=== PATIENT | male | born 1970 | race Caucasian/White ===

== ENCOUNTER 2020-03-23 09:25 | Emergency (ER) | payer MEDICAID, SELFPAY ==
[2020-03-23 09:39] VITALS: BP 179/117; PULSE 85; RESP 20; TEMP 36.9; O2SAT 97; BMI 25.1
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
--- NOTE | 2020-03-23 09:51 | ECG_ITS ---
Test Reason : SOB Blood Pressure : / mmHG Vent. Rate : 073 BPM Atrial Rate : 073 BPM P-R Int : 126 ms QRS Dur : 080 ms QT Int : 410 ms P-R-T Axes : 050 020 086 degrees QTc Int : 451 ms Normal sinus rhythm Nonspecific T wave abnormality Abnormal ECG No previous ECGs available Referred By: Dominique Raines Electronically Signed By:BATOOL CESPEDES MD
--- NOTE | 2020-03-23 09:52 | XR_ITS ---
EXAMINATION: XR CHEST CLINICAL INFORMATION: Productive cough and fever COMPARISON: None TECHNIQUE: Frontal view of the chest was obtained. FINDINGS: The cardiac and mediastinal contours are normal. The lungs are well inflated. The lungs are clear. There is no pleural effusion or thorax. There may be a degenerative changes of the spine. XR/XR chest 1V IMPRESSION: Well-inflated lungs. No evidence of pneumonia.
[2020-03-23 10:00] VITALS: BP 179/117; PULSE 85; RESP 20; TEMP 36.9; O2SAT 97
[2020-03-23] MEDS: methylPREDNISolone Sod Succ/PF 125 MG/2 ML VIAL 80 MG IVPUSH (10:17)
[2020-03-23 10:23] LABS: MANUAL DIFF FLAG NO
[2020-03-23 10:41] LABS: Basophils Absolute Auto 0.1 X10*3/uL (0.0-0.2); Basophils Percent Auto 0.7 % (0-2); Eosinophils Absolute Auto 0.9 X10*3/uL (0.0-0.4); Eosinophils Percent Auto 9.4 % (0-4); Hematocrit 46.2 % (42-52); Imm Gran Abs Auto 0.03 X10*3/uL (0.00-0.03); Imm Gran Pct Auto 0.3 % (0.0-0.4); Lymphocytes Absolute Auto 2.5 X10*3/uL (1.2-4.9); Lymphocytes Percent Auto 25.5 % (20-40); Mean Corpuscular HGB Conc 34.6 g/dl (31.0-36.0); Mean Corpuscular Hemoglobin 33.8 pg (27.0-33.0); Mean Corpuscular Volume 97.5 fL (80-98); Mean Platelet Volume 9.6 fL (9.4-12.4); Monocytes Absolute Auto 0.8 X10*3/uL (0.1-1.2); Monocytes Percent Auto 7.7 % (2-11); Neutrophils Absolute Auto 5.6 X10*3/uL (2.0-8.3); Neutrophils Percent Auto 56.4 % (45-73); Platelet Count 360 X10*3/uL (160-400); Red Blood Count 4.74 X10*6/uL (4.60-5.80); Red Cell Distribution Width 12.3 % (11.0-16.0); White Blood Count 9.9 X10*3/uL (4.8-10.8)
[2020-03-23] MEDS: Albuterol/Iprat 2.5/0.5MG 3 ML AMPUL.NEB INHALE (10:51)
[2020-03-23 11:07] LABS: Troponin-I High Sensitivity 13.7 ng/L (<3.5-35.0)
[2020-03-23 12:00] VITALS: BP 179/117; PULSE 85; RESP 20; TEMP 36.9; O2SAT 97
[2020-03-23 12:12] LABS: Anion Gap 15 (12-20); Blood Urea Nitrogen 15 mg/dL (9-16); Calcium 9.4 mg/dL (8.4-10.2); Carbon Dioxide 24 mmol/L (22-29); Chloride 104 mmol/L (96-108); Estimated Glomerular Filt Rate > 60; Glucose Random 106 mg/dL (60-115); Potassium 4.3 mmol/l (3.3-5.1); Sodium 139 mmol/L (135-145)
== END 2020-03-23 12:43 | disposition home or self-care (01) ==
PROVIDERS: Physician Assistant; Emergency Provider Emergency Medicine; PCP Internal Medicine
DX: J40 Bronchitis, not specified as acute or chronic (principal); R05 Cough; I10 Essential (primary) hypertension; Z20.828 Contact with and (suspected) exposure to other viral communicable diseases; F17.210 Nicotine dependence, cigarettes, uncomplicated; Z71.6 Tobacco abuse counseling; Z79.899 Other long term (current) drug therapy
CPT/HCPCS: 36415; 71045; 80048; 83735; 84484; 85025; 87071; 87880; 93005; 96374; 99284; J2930; U0003

== ENCOUNTER 2020-04-07 14:40 | Emergency (ER) | payer MEDICAID, SELFPAY ==
[2020-04-07 14:47] VITALS: BP 126/87; PULSE 120; RESP 20; TEMP 39.6; O2SAT 93; BMI 25.1
--- NOTE | 2020-04-07 14:55 | XR_ITS ---
EXAMINATION: XR CHEST CLINICAL INFORMATION: Fever. COMPARISON: Chest radiograph 03/23/2020 TECHNIQUE: Portable upright AP view of the chest was obtained. FINDINGS: There is no airspace consolidation or definite groundglass opacity. The vascularity is normal. The costophrenic sulci are clear. The heart is normal in size. The hilar and mediastinal contours and bony structures are unremarkable. XR/XR chest 1V IMPRESSION: Unremarkable examination.
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
--- NOTE | 2020-04-07 15:32 | ECG_ITS ---
Test Reason : FEVER Blood Pressure : / mmHG Vent. Rate : 124 BPM Atrial Rate : 124 BPM P-R Int : 122 ms QRS Dur : 072 ms QT Int : 292 ms P-R-T Axes : 079 043 134 degrees QTc Int : 419 ms Sinus tachycardia Possible Left atrial enlargement T wave abnormality, consider lateral ischemia Abnormal ECG When compared with ECG of 23-MAR-2020 11:03, Vent. rate has increased BY 51 BPM Nonspecific T wave abnormality now evident in Inferior leads Inverted T waves have replaced nonspecific T wave abnormality in Lateral leads Referred By: Dominique Raines Electronically Signed By:BATOOL CESPEDES MD
[2020-04-07 15:40] LABS: MANUAL DIFF FLAG NO
[2020-04-07 15:41] LABS: Basophils Absolute Auto 0.1 X10*3/uL (0.0-0.2); Basophils Percent Auto 0.3 % (0-2); Eosinophils Percent Auto 0.2 % (0-4); Hematocrit 41.4 % (42-52); Hemoglobin 14.8 g/dl (14.0-18.0); Imm Gran Abs Auto 0.12 X10*3/uL (0.00-0.03); Imm Gran Pct Auto 0.5 % (0.0-0.4); Lymphocytes Absolute Auto 2.1 X10*3/uL (1.2-4.9); Lymphocytes Percent Auto 9.1 % (20-40); Mean Corpuscular HGB Conc 35.7 g/dl (31.0-36.0); Mean Corpuscular Hemoglobin 34.2 pg (27.0-33.0); Mean Corpuscular Volume 95.6 fL (80-98); Mean Platelet Volume 9.7 fL (9.4-12.4); Monocytes Absolute Auto 1.2 X10*3/uL (0.1-1.2); Monocytes Percent Auto 5.1 % (2-11); Neutrophils Absolute Auto 19.8 X10*3/uL (2.0-8.3); Neutrophils Percent Auto 84.8 % (45-73); Platelet Count 317 X10*3/uL (160-400); Red Blood Count 4.33 X10*6/uL (4.60-5.80); Red Cell Distribution Width 11.9 % (11.0-16.0); White Blood Count 23.3 X10*3/uL (4.8-10.8)
[2020-04-07] MEDS: Albuterol/Iprat 2.5/0.5MG 3 ML AMPUL.NEB INHALE (15:41)
[2020-04-07 15:43] VITALS: PULSE 115; O2SAT 95
[2020-04-07 15:49] LABS: D Dimer 453 NG/ML
[2020-04-07 16:05] LABS: Lactic Acid 0.9 mmol/L (0.5-2.0)
[2020-04-07 16:08] LABS: C Reactive Protein 29.04 mg/dL (< or = 0.50); Lactate Dehydrogenase 175 U/L (118-273)
--- NOTE | 2020-04-07 16:09 | CT_ITS ---
EXAMINATION: CT CHEST WITHOUT CONTRAST CLINICAL INFORMATION: Shortness of breath and fever. Concern for COVID versus pneumonia. COMPARISON: Radiograph from today TECHNIQUE: Multidetector volumetric CT imaging of the chest was done. Axial MIP volume rendering provided. Sagittal and coronal reformatted images were obtained. This CT examination was performed using dose optimization techniques as appropriate, variously including the following: *Automated exposure control *Adjustment of mA and/or kV according to patient size (this includes techniques or standardized protocols for targeted exams where dose is matched to indication/reason for exam; i.e. extremities or head) *Use of iterative reconstruction technique DLP: 307 mGy-cm FINDINGS: DIRECTOR OF CARDIOLOGY SERVICE LINE: Unremarkable. LUNGS: The central airways are patent. There is mild to moderate centrilobular and paraseptal emphysema, greatest in the upper lobes. Prominent bulla in the anterior right upper lobe along the minor fissure. Biapical pleural thickening with nodularity, right greater than left. For instance, there is a nodular area at the right apex measuring 0.7 cm on series 5 image 71. There is no dense consolidation. Bronchial wall thickening is present with tree in bud nodular opacities seen in both lungs. Small nodular areas of groundglass opacity also noted. This is greatest throughout the right mid to lower lung. Scattered bronchial filling defects are noted. The presence of the tree-in-bud opacities limits evaluation for parenchymal nodules. MEDIASTINUM: Normal heart size. No pericardial effusion. Mildly prominent mediastinal lymph nodes are noted. For instance, there is a precarinal node measuring 0.8 cm short axis. PLEURA: There is no pleural effusion. No pleural mass or thickening. No pneumothorax. AXILLA: No lymphadenopathy. UPPER ABDOMEN: Unremarkable. OSSEOUS STRUCTURES: No acute or suspicious osseous abnormality. CT/CT chest wo con IMPRESSION: Moderate emphysema. Diffuse tree in bud nodular opacities favor infectious or inflammatory process. There is no dense lobar consolidation as is classically seen with typical pneumonia. This is not the typical pattern for COVID. Given the presence of emphysema and the diffuse nodular opacities, follow-up is suggested in 3 months to exclude underlying nodules.
[2020-04-07 16:10] LABS: Magnesium 1.9 mg/dL (1.6-2.6)
[2020-04-07 16:13] VITALS: BP 138/80; PULSE 121; RESP 18; O2SAT 90
[2020-04-07 16:25] LABS: Procalcitonin 0.22 ng/mL
[2020-04-07 16:29] VITALS: TEMP 39.6
[2020-04-07] MEDS: 0.9 % Sodium Chloride 2,313.33 ML 2313.33 ML IVCONT (16:39)
[2020-04-07] MEDS: Acetaminophen 325 MG TABLET 975 MG PO (16:39)
[2020-04-07] MEDS: ondansetron HCL 4 MG/2 ML VIAL IVPUSH (16:39)
[2020-04-07] MEDS: cefTRIAXone sodium 1 GM in 0.9 % Sodium Chloride 50 ML IV (16:40)
[2020-04-07 17:19] LABS: Alanine Aminotransferase 17 U/L (0-40); Albumin Level 4.5 g/dL (3.5-5.0); Alkaline Phosphatase 83 U/L (39-117); Anion Gap 16 (12-20); Aspartate Amino Transferase 13 U/L (5-37); Bilirubin Direct 0.5 mg/dL (0.0-0.5); Bilirubin Total 1.2 mg/dL (0.0-1.0); Blood Urea Nitrogen 12 mg/dL (9-16); Calcium 9.5 mg/dL (8.4-10.2); Carbon Dioxide 25 mmol/L (22-29); Chloride 97 mmol/L (96-108); Creatinine Clr Calc Pharmacy 82.7; Estimated Glomerular Filt Rate > 60; Glucose Random 107 mg/dL (60-115); Potassium 4.3 mmol/l (3.3-5.1); Sodium 134 mmol/L (135-145); Total Protein 7.3 g/dL (6.5-8.0)
[2020-04-07 17:35] LABS: Troponin-I High Sensitivity 17.5 ng/L (<3.5-35.0)
[2020-04-07] MEDS: Azithromycin 500 MG in 0.9 % Sodium Chloride 250 ML 125 MG IV (17:57)
[2020-04-07 18:24] LABS: Influenza A PCR NEGATIVE (Negative); Influenza B PCR NEGATIVE (Negative); Resp Syncy Virus RNA Qual PCR NEGATIVE (Negative); SARS COV2 PCR INHOUSE NEGATIVE (Negative)
[2020-04-07 18:47] VITALS: BP 129/63; PULSE 97; RESP 16; TEMP 37.9; O2SAT 93
--- NOTE | 2020-04-07 19:07 | PC.NURSE ---
walked patient a household distance on room air. patient o2 saturation went down to 88% after 100 feet.
[2020-04-07 19:08] LABS: Glucose Urine UA NEG (NEG); Leukocyte Esterase Urine NEG (NEG); Nitrite Urine NEG (NEG); PH 6.5 (5.0-8.0); Urine Blood NEG (NEG); Urine Ketones NEG (NEG); Urine Protein TRACE MG/DL (NEG-TRACE)
[2020-04-07 19:09] LABS: Appearance Urine CLEAR; Color Urine YELLOW
[2020-04-07 19:39] VITALS: BP 109/61; PULSE 89; RESP 20; O2SAT 94
[2020-04-07] MEDS: methylPREDNISolone Sod Succ/PF 125 MG/2 ML VIAL IVPUSH (19:40)
[2020-04-07 20:26] LABS: Troponin-I High Sensitivity 18.3 ng/L (<3.5-35.0)
== END 2020-04-07 20:48 | disposition left against medical advice (07) ==
PROVIDERS: Physician Assistant; Emergency Provider Emergency Medicine; PCP Internal Medicine
DX: J18.9 Pneumonia, unspecified organism (principal); A41.9 Sepsis, unspecified organism; R50.9 Fever, unspecified; M54.6 Pain in thoracic spine; F14.90 Cocaine use, unspecified, uncomplicated; Z20.828 Contact with and (suspected) exposure to other viral communicable diseases; Z79.899 Other long term (current) drug therapy
CPT/HCPCS: 0241U; 36415; 71045; 71250; 80048; 80076; 81003; 83605; 83615; 83735; 84145; 84484; 85025; 85379; 86140; 87040; 93005; 94640; 96361; 96365; 96366; 96367; 96375; 99284; 99285; J0456; J0696; J2405; J2930

== ENCOUNTER 2020-05-28 17:56 | Emergency (ER) | payer MEDICAID, SELFPAY ==
[2020-05-28 18:19] VITALS: BP 124/73; PULSE 88; RESP 18; TEMP 36.6; O2SAT 95; BMI 22.9
--- NOTE | 2020-05-28 18:30 | XR_ITS ---
EXAMINATION: XR CHEST CLINICAL INFORMATION: Chest pain. COMPARISON: None TECHNIQUE: Frontal view of the chest was obtained. FINDINGS: No significant abnormality is noted involving the heart, lungs, mediastinum, bony thorax or soft tissues. XR/XR chest 1V IMPRESSION: Unremarkable chest examination.
--- NOTE | 2020-05-28 18:32 | ED_ITS ---
HPI - Chest Pain General Chief Complaint: Chest Pain Stated Complaint: chest pain x months Time Seen by Provider: 05/28/20 18:30 Source: patient and police Mode of arrival: EMS Limitations: no limitations History of Present Illness HPI narrative: 49-year-old male brought in by EMS who is in police custody for chest pain, patient stated that he gets intermittent chest pain for the past few months (do not feel pain but it feels like he is skipping a beat), this feeling is intermittent, when it comes it lasts for few minutes then go away, nothing trigger patient's symptoms, nothing make it worse, no other associated symptoms. Patient admitted to recent use of cocaine and alcohol. Patient has a history of hypertension using lisinopril (patient has not taking his medication for many weeks now). Related Data Previous Rx's Medication Instructions Recorded albuterol sulfate [ProAir HFA] 1 inh INHALATION QID PRN #8.5 g NS 03/23/20 azithromycin [Zithromax Z-Masood] See Rx Instructions .ROUTE 03/23/20 .COMPLEX #6 tab budesonide [Pulmicort Flexhaler] 1 inh INHALATION Q12H #1 ea 03/23/20 fluticasone propionate [Flonase 1 spray INTRANASAL BID #9.9 ml 03/23/20 Allergy Relief] prednisone 40 mg PO DAILY #10 tab 03/23/20 albuterol sulfate 1 inh INHALATION Q4-6H PRN #8.5 g 04/07/20 NS budesonide-formoterol [Symbicort] 2 puff INHALATION Q12H #10.2 g 04/07/20 cefpodoxime 200 mg PO Q12H #20 tab 04/07/20 doxycycline monohydrate 100 mg PO BID #20 tab 04/07/20 ondansetron HCl [Zofran] 4 mg PO Q8H PRN #10 tab 04/07/20 prednisone 50 mg PO DAILY #5 tab 04/07/20 Allergies Allergy/AdvReac Type Severity Reaction Status Date / Time bee pollen [BEE STINGS] Allergy Unknown UNKNOWN Verified 03/23/20 09:42 Penicillins [PCN] Allergy Unknown SWELLING Verified 03/23/20 09:42 Review of Systems Review of Systems: All other systems are reviewed and are negative Constitutional: Reports as per HPI and Reports no additional constitutional complaints Eyes: Reports as per HPI and Reports no additional eye complaints Reports system reviewed and no additional complaints, except as documented Cardiovascular: Reports as per HPI and Reports no additional cardiovascular complaints Respiratory: Reports as per HPI and Reports no additional respiratory complaints Gastrointestinal: Reports as per HPI and Reports no additional gastrointestinal complaints Genitourinary: Reports no additional female genitourinary complaints Musculoskeletal: Reports no additional musculoskeletal complaints Skin/Breast: Reports system reviewed and no additional complaints, except as docu Psychiatric: Reports no additional psychiatric complaints Endocrine: Reports no additional endocrine complaints Hematologic/Lymphatic: Reports no additional hematologic/lymphatic complaints Allergic/Immunologic: Reports no additional allergic/immunologic complaints Reports system reviewed and no additional complaints, except as documented and Reports Abnormal speech present [facility] Past Medical History Medical History COPD (chronic obstructive pulmonary disease) Hypertension Social History Social History Alcohol intake: unknown Smoking Status: Unknown if ever smoked Substance Use Type: Crack/Cocaine Advance Directives: No Advance Directives Information Provided: No Physical Exam Vital Signs: Vital Signs: Last Vital Signs Temp 98 F 05/28/20 18:19 Pulse 88 05/28/20 18:19 Resp 18 05/28/20 18:19 BP 124/73 05/28/20 18:19 Pulse Ox 95 05/28/20 18:19 Body Mass Index 22.9 Vital signs have been reviewed as normal and appeared to be correct. Blood pressure normal. Heart rate normal. Respiration rate normal. Temperature normal. Oxygen saturation normal. Appearance: Alert. Oriented X3. No acute distress. Head: Normal external exam. Normocephalic. Atraumatic. No Nuñez signs noted. No raccoon eyes noted Eyes: PERRLA. EOMI. Conjunctiva and sclera normal. Eyelids normal. ENT: EAC normal. TM's Normal. Pharynx normal. Uvula midline. Moist mucous membranes. No trismus noted. No drooling noted. No muffled voice noted. Neck: Normal inspection. Neck supple. FROM. No adenopathy. Thyroid Normal. No meningeal signs. No neck mass noted. CVS: Normal heart rate and rhythm. Heart sound normal. No murmurs noted. Pulses normal throughout. Respiratory: No respiratory distress. Painless inspiration. Breath sounds normal. No wheezes/rales/rhonchi noted. Chest nontender. No accessory muscle usage noted or decreased air movement noted. Abdomen: Soft and nontender. Bowel sounds normal in all 4 quadrants. No distention noted. No organomegaly noted. No visible injury noted. Back: No CVA tenderness. Full range of motion noted. Skin: Skin warm and dry. Normal skin color. Normal skin turgor. No rashes /lesions/lacerations noted. Extremities: No lower extremity edema. Extremities exhibit normal range of motion. Extremities nontender. Neuro: Oriented X 3. No motor deficit. No sensory deficit. Reflexes normal. Course Course Course Narrative: Assessment and plan. This is a 49-year-old male (in the police custody) came in with chest pain. Patient adamantly refuse checking his blood, patient is awake and alert and oriented time for patient understand that blood workup including cardiac enzyme is crucial to diagnose early ACS, patient verbalized a good understanding of the importance of having blood workup and still adamant not to give the blood or getting EKG, patient had agreed on chest x-ray, and COVID testing to be done. Patient is chest pain-free, patient was instructed if any chest pain to return to seek immediate medical attention. MDM - Chest Pain Imaging Data Chest x-ray: Radiologist's impression: No acute pathology Discharge Plan Discharge Clinical Impression: Chest pain Patient Disposition: Home, Self-Care Instructions: Chest Pain (ED) Additional Instructions: Seek immediate medical attention if any chest pain or difficulty breathing. Prescriptions: No Action azithromycin [Zithromax Z-Masood] 250 mg tablet See Rx Instructions .ROUTE .COMPLEX Qty: 6 RF: 0 prednisone 20 mg tablet 40 mg PO DAILY Qty: 10 RF: 0 Pulmicort Flexhaler 90 mcg/actuation aerosol powdr breath activated 1 inh inhalation Q12H Qty: 1 RF: 0 albuterol sulfate [ProAir HFA] 90 mcg/actuation HFA aerosol inhaler 1 inh inhalation QID PRN (Reason: shortness of breath or wheezing) Qty: 8.5 RF: 0 fluticasone propionate [Flonase Allergy Relief] 50 mcg/actuation spray,suspen roxie 1 spray intranasal BID Qty: 9.9 RF: 0 prednisone 50 mg tablet 50 mg PO DAILY Qty: 5 RF: 0 doxycycline monohydrate 100 mg tablet 100 mg PO BID Qty: 20 RF: 0 cefpodoxime 200 mg tablet 200 mg PO Q12H Qty: 20 RF: 0 ondansetron HCl [Zofran] 4 mg tablet 4 mg PO Q8H PRN (Reason: nausea and vomiting) Qty: 10 RF: 0 albuterol sulfate 90 mcg/actuation HFA aerosol inhaler 1 inh inhalation Q4-6H PRN (Reason: shortness of breath or wheezing) Qty: 8.5 RF: 0 budesonide-formoterol [Symbicort] 160-4.5 mcg/actuation HFA aerosol inhaler 2 puff inhalation Q12H Qty: 10.2 RF: 0 Referrals: Physician,Unknown [Primary Care Provider] - 2 days
[2020-05-28] MEDS: 0.9 % Sodium Chloride 1,000 ML 999 ML IVCONT (19:30)
--- NOTE | 2020-05-28 20:01 | PC.NURSE ---
PATIENT REFUSED ALL BLOODWORK, ONLY OKAYED HAVING COVID/FLU/RSV SWAB OBTAINED. SWAB OBTAINED AND SENT TO LAB FOR ANALYSIS. AWAITING RESULTS. UPON ATTEMPTING TO OBTAIN EKG ON PATIENT, PATIENT REFUSED TO COMPLY AND THEN REFUSED HAVING EKG DONE, REMOVING EKG LEADS FROM HIS CHEST STATING I JUST WANNA FUCKING SLEEP. I'M NOT DOING THIS SHIT. TAKE ALL THIS SHIT OFF, I'M DONE . [employer] PRESENT, WAS ARRESTED PRIOR TO ED ARRIVAL. PT REMOVED IV ACCESS FROM SELF, GAUZE APPLIED TO AREA. NO ACTIVE BLEEDING NOTED. AWARE OF PATIENT'S REFUSAL OF ALL LABS AND TESTING OTHER THAN COVID/FLU/RSV SWAB. PLAN TO DISCHARGE TO POLICE CUSTODY.
[2020-05-28 20:30] LABS: Influenza A PCR NEGATIVE (Negative); Influenza B PCR NEGATIVE (Negative); Resp Syncy Virus RNA Qual PCR NEGATIVE (Negative); SARS COV2 PCR INHOUSE NEGATIVE (Negative)
== END 2020-05-28 20:12 | disposition home or self-care (01) ==
PROVIDERS: Emergency Provider Emergency Medicine
DX: R07.9 Chest pain, unspecified (principal); Z20.828 Contact with and (suspected) exposure to other viral communicable diseases; I10 Essential (primary) hypertension; T46.4X6A Underdosing of angiotensin-converting-enzyme inhibitors, initial encounter; Y92.9 Unspecified place or not applicable
CPT/HCPCS: 0241U; 36415; 71045; 96360; 99283; 99284

== ENCOUNTER 2021-12-01 13:59 | Outpatient (REF) | payer MEDICAID, SELFPAY ==
[2021-12-01 18:51] LABS: MANUAL DIFF FLAG NO
[2021-12-01 18:56] LABS: Basophils Percent Auto 0.4 % (0-2); Eosinophils Absolute Auto 0.2 X10*3/uL (0.0-0.4); Eosinophils Percent Auto 2.1 % (0-4); Hematocrit 38.7 % (42.0-52.0); Hemoglobin 12.9 g/dl (14.0-18.0); Imm Gran Abs Auto 0.02 X10*3/uL (0.00-0.03); Imm Gran Pct Auto 0.2 % (0.0-0.4); Lymphocytes Absolute Auto 4.2 X10*3/uL (1.2-4.9); Lymphocytes Percent Auto 46.6 % (20-40); Mean Corpuscular HGB Conc 33.3 g/dl (31.0-36.0); Mean Corpuscular Hemoglobin 30.6 pg (27.0-33.0); Mean Corpuscular Volume 91.9 fL (80.0-98.0); Mean Platelet Volume 9.5 fL (9.4-12.4); Monocytes Absolute Auto 0.7 X10*3/uL (0.1-1.2); Monocytes Percent Auto 8.1 % (2-11); Neutrophils Absolute Auto 3.8 x10*3/uL (2.0-8.3); Neutrophils Percent Auto 42.6 % (45-73); Platelet Count 221 X10*3/uL (160-400); Red Blood Count 4.21 X10*6/uL (4.60-5.80); Red Cell Distribution Width 13.7 % (11.0-16.0)
[2021-12-01 19:12] LABS: Alanine Aminotransferase 43 U/L (0-40); Albumin Level 4.2 g/dL (3.5-5.0); Alkaline Phosphatase 111 U/L (39-117); Anion Gap 13 (12-20); Aspartate Amino Transferase 32 U/L (5-37); Bilirubin Total 0.5 mg/dL (0.0-1.0); Blood Urea Nitrogen 40 mg/dL (9-16); Calcium 9.4 mg/dL (8.4-10.2); Carbon Dioxide 24 mmol/L (22-29); Chloride 103 mmol/L (96-108); Estimated Glomerular Filt Rate > 60; Glucose Random 102 mg/dL (60-115); Potassium 4.2 mmol/L (3.3-5.1); Sodium 136 mmol/L (135-145); Total Protein 7.1 g/dL (6.5-8.0)
[2021-12-01 19:31] LABS: Erythrocyte Sedimentation Rate 7 MM/HR (0-15)
[2021-12-01 19:35] LABS: Free T4 (Free Thyroxine) 0.95 ng/dL (0.71-1.85); Prostate Specific Antigen 0.16 ng/mL (<0.05-4.0); Thyroid Stimulating Hormone 1.95 uIU/mL (0.32-4.0); Vitamin D 25-OH Total 27.3 ng/mL (>30)
[2021-12-01 19:37] LABS: Estimated Average Glucose 85 mg/dL; Hemoglobin A1c % 4.6 %
[2021-12-01 19:48] LABS: Folate 12.6 ng/mL (> or = 4.0); Vitamin B12 > 2000 pg/mL (200-900)
== END 2021-12-01 14:00 | disposition home or self-care (01) ==
LOC: HO.MANLDS 13:59
PROVIDERS: Visit Provider Physician Assistant
DX: Z12.5 Encounter for screening for malignant neoplasm of prostate (principal); R63.4 Abnormal weight loss
CPT/HCPCS: 36415; 80053; 82306; 82607; 82746; 83036; 84153; 84439; 84443; 85025; 85652